=== PATIENT | female | born 1995 | race Caucasian/White ===

== ENCOUNTER 2018-12-05 06:00 | Inpatient (IN) | payer MEDICAID ==
[~2018-12-05] VITALS: Ht 160 cm; Wt 63.3 kg
[2018-12-05 06:30] VITALS: Ht 160 cm; Wt 63.3 kg
[2018-12-05 06:34] VITALS: BP 121/77; PULSE 86; RESP 17
[2018-12-05] MEDS ORDERED: FER325 PO (06:36)
[2018-12-05] MEDS ORDERED: PREN1TAB13 PO (06:36)
[2018-12-05] MEDS ORDERED: OXYCODONE/ASPIRIN (4.88/325) TAB PO PRN (07:00)
[2018-12-05] MEDS ORDERED: LIDOCAINE 1% (MPF) 30 ML INJ INJ PRN (07:00)
[2018-12-05] MEDS ORDERED: OXYTOCIN 30 UNITS/LR 500 ML IV PRN ×2 (07:00→20:30)
[2018-12-05] MEDS ORDERED: CARBOPROST 250 MCG INJ IM PRN ×2 (07:00→20:30)
[2018-12-05] MEDS ORDERED: BUTORPHANOL 2 MG INJ IV PRN (07:00)
[2018-12-05] MEDS ORDERED: METHYLERGONOVINE 0.2 MG INJ IM PRN ×2 (07:00→20:30)
[2018-12-05] MEDS ORDERED: OXYTOCIN 30 UNITS/LR 500 ML IV SCH ×3 (07:00→08:30)
[2018-12-05] MEDS ORDERED: MISOPROSTOL 200 MCG TAB PR PRN ×2 (07:00→20:30)
[2018-12-05] MEDS ORDERED: AMPICILLIN 2 GM/NS (PMX) 100 ML IVPB ONE (08:30)
[2018-12-05] MEDS ORDERED: AMPICILLIN 2 GM/NS (PMX) 100 ML ONE (08:51)
[2018-12-05] MEDS: LACTATED RINGER'S 1,000 ML IV SCH ×2 (09:04→18:39)
--- NOTE | 2018-12-05 10:40 | PREOPHP ---
DATE OF ADMISSION: 12/05/2018 HISTORY OF PRESENT ILLNESS: This is a 23-year-old lady, 1, EDC 12/06/2018, at 39 and 6/7 wee ks, admitted in early labor and for Pitocin augmentation. She had care in my [place] office and the care was uneventful. PAST PERSONAL HISTORY: No history of diabetes, TB, asthma. ALLERGIES: NO ALLERGIES. SOCIAL HISTORY: The patient does not smoke. She does not drink. MEDICATIONS: She does not take any drugs except her iron and vitamins. GYNECOLOGIC HISTORY: She had menarche at the age of 11, every 28 days interval, 3 to 4 days duration , and moderate in amount. REVIEW OF SYSTEMS: CARDIOVASCULAR: No chest pains. RESPIRATORY: No cough. GASTROINTESTINAL: No diarrhea, no vomiting. GENITOURINARY: No dysuria. PHYSICAL EXAMINATION: GENERAL: Reveals a conscious, coherent lady and in no acute distress. VITAL SIGNS: Her blood pressure 120/80, pulse rate 80 per minute, respirations 16 per minute. BREASTS, HEART AND LUNGS: Within normal limits. ABDOMEN: Soft. No organomegaly. Fundic height 36 cm. heart tones 140 per minute. PELVIC: Exam done by me revealed the cervix to be 2 cm dilated, 80% effaced station, -1 in cephalic presentation with the bag of water intact. EXTREMITIES: No pedal edema. ADMITTING DIAGNOSIS: A 39 and 6/7 weeks intrauterine in early labor. The patient had an O B ultrasound done and the estimated weight is 6 pounds 5 ounces. PLAN: The plans of delivery were explained to the patient as to go for vaginal delivery. The risks, benefits, and alternatives to vaginal delivery and were explained. The risks of was explained. The patient wanted to go for vaginal delivery. She was ordered to have Pitocin augm entation. Dictated By: MATY DE LA PAZ MD NS/NTS Conf#: [id number] DID#: [id number] CC: MATY DE LA PAZ MD;*EndCC*
[2018-12-05] MEDS: AMPICILLIN 1 GM/NS (PMX) 50 ML IVPB SCH ×2 (13:34→17:26)
[2018-12-05] MEDS: OXYTOCIN 30 UNITS/LR 500 ML IV SCH (20:19)
[2018-12-05] MEDS ORDERED: LACTATED RINGER'S 1,000 ML IV* SCH (20:19)
[2018-12-05 20:30] VITALS: BP 115/62; PULSE 88; RESP 18
[2018-12-05] MEDS ORDERED: HYDROCODONE/APAP (5/325) TAB PO PRN ×2 (20:30)
[2018-12-05] MEDS ORDERED: MAGNESIUM HYDROXIDE 30ML CUP PO PRN (20:30)
[2018-12-05] MEDS ORDERED: BENZOCAINE 20% 56 ML SPRAY TOP PRN (20:30)
[2018-12-05] MEDS ORDERED: DIPHENHYDRAMINE 25 MG CAP PO PRN (20:30)
[2018-12-05] MEDS ORDERED: WITCH HAZEL/GLYCERIN PAD PR PRN (20:30)
[2018-12-05] MEDS ORDERED: NA PHOSPHATE/BIPHOS 133 ML ENEMA PR PRN (20:30)
[2018-12-05] MEDS ORDERED: METHYLERGONOVINE 0.2 MG TAB PO PRN (20:30)
[2018-12-05] MEDS ORDERED: ONDANSETRON 4 MG INJ IV PRN (20:30)
[2018-12-05] MEDS ORDERED: IBUPROFEN 600 MG TAB PO PRN (20:30)
[2018-12-05] MEDS ORDERED: ZOLPIDEM 5 MG TAB PO PRN (20:30)
[2018-12-05] MEDS ORDERED: LANOLIN HPA 1 PKT TOP PRN (20:30)
[2018-12-05 21:00] VITALS: BP 122/66; PULSE 89; RESP 18
--- NOTE | 2018-12-05 21:30 | LDN ---
Date/Time of Note Date/Time of Note DATE: 12/05/18 TIME: 21:25 Delivery Summary 23 years old 1 with single intrauterine at 39 weeks and 3 days delivered a viable female over median episiotomy. Nose and mouth suctioned. There was nuchal cord x1 which reduced. The rest of body delivered. Cord clamped and cut after stopping pulsation. Baby given to the nurse. Placenta delivered spontaneously and intact with three-vessel cord. Median episiotomy repaired with 3-0 Vicryl. Patient tolerated procedure well Time of delivery 19:14 Weight 5 pounds 12 ounces 9 at 1 minutes and 9 at 5 minutes EBL 200 mL Weeks of Gestation 39 weeks and 3 days Placenta Delivered: Spontaneously Meconium: none Episiotomy: Yes (Median episiotomy) Indication for episiotomy Facilitate delivery Anesthesia type: Local Estimated blood loss: 200 Sponge & Needle done & correct: Yes All needle counts correct: Yes Any foreign bodies felt in the: No Delivery Information Sex Sex: female Apgars 1 Minute: 9 5 Minute: 9 10 Minute: 10 Suctioning Nose & mouth suctioned at pauline: Yes Umbilical Cord Umbilical cord with: 3 Vessels Cord presentations: nuchal cord Nuchal cord present X: 1 Cord Blood was obtained: Yes Mother & Baby Disposition Disposition Mom & Baby to Maternity; Good: Yes MILO SANCHEZ Dec 05, 2018 21:30
[2018-12-05] MEDS: SENNA/DOCUSATE NA (8.6MG/50MG) TAB PO SCH (21:51)
[2018-12-06] VITALS: BP 115/66; PULSE 88; RESP 16
[2018-12-06] MEDS ORDERED: AMPICILLIN 2 GM/NS (PMX) 100 ML IV SCH
[2018-12-06] MEDS: OXYTOCIN 30 UNITS/LR 500 ML IV SCH (00:01)
[2018-12-06 01:30] VITALS: BP 106/59; PULSE 96; RESP 18
[2018-12-06 04:30] VITALS: BP 106/59; PULSE 96; RESP 18
[2018-12-06 08:15] VITALS: BP 107/61; PULSE 93; RESP 18
[2018-12-06] MEDS: SENNA/DOCUSATE NA (8.6MG/50MG) TAB PO SCH ×2 (09:29→21:27)
[2018-12-06] MEDS: IBUPROFEN 600 MG TAB PO PRN (14:21)
[2018-12-06 15:45] VITALS: BP 103/52; PULSE 80; RESP 18
[2018-12-06 20:05] VITALS: BP 106/66; PULSE 98; RESP 19
[2018-12-07 03:20] VITALS: BP 103/52; PULSE 85; RESP 20
[2018-12-07 08:15] VITALS: BP 109/60; PULSE 70; RESP 19
[2018-12-07] MEDS ORDERED: VARICELLA VACCINE LIVE/PF 1,350 UNIT/0.5 ML ML SC* ONE (09:00)
[2018-12-07] MEDS ORDERED: MEASLES,MUMPS,RUBELLA VACCINE INJ SC* ONE (09:00)
[2018-12-07] MEDS ORDERED: DIPHTH/TET/ACEL PERTUSS (ADULT) 0.5 ML VIAL IM* ONE (09:00)
[2018-12-07] MEDS: SENNA/DOCUSATE NA (8.6MG/50MG) TAB PO SCH (09:00)
[2018-12-07] MEDS: IBUPROFEN 600 MG TAB PO PRN (13:05)
[2018-12-07 15:55] VITALS: BP 118/74; PULSE 83; RESP 18
--- NOTE | 2018-12-07 16:21 | PN ---
Date/Time of Note Date/Time of Note DATE: 12/07/18 TIME: 16:19 Assessment/Plan VTE Prophylaxis Risk score (from Ns)>0 risk: 1 SCD applied (from Ns): No SCD contraindicated: low risk/ambulating Pharmacological prophylaxis: NA/contraindicated Pharm contraindication: low risk/ambulating Lines/Catheters [facility] Peripheral IV Assessment/Plan Assessment/Plan POST DAY HOME TODAY RETURN TO CLINIC IN 2 WEEKS CONTINUE WITH VITAMINS OD AND FERROUS SULFATE PO TID DIET ADVISED COUNSELED INSTRUCTED CALL OFFICE IF THERE IS ANY PROBLEMS OR CONCERN Result Diagram: 12/07/18 0821 Results 24hrs Laboratory Tests Test 12/07/18 08:21 White Blood Count 10.8 # Red Blood Count 3.47 L Hemoglobin 10.4 L Hematocrit 32.1 L Mean Corpuscular Volume 92.5 Mean Corpuscular Hemoglobin 30.0 Mean Corpuscular Hemoglobin Concent 32.4 Red Cell Distribution Width 14.1 Platelet Count 158 Mean Platelet Volume 10.7 H Immature Granulocytes % 0.700 H Neutrophils % 71.3 Lymphocytes % 20.5 Monocytes % 6.6 Eosinophils % 0.6 Basophils % 0.3 Nucleated Red Blood Cells % 0.0 Immature Granulocytes # 0.070 H Neutrophils # 7.7 H Lymphocytes # 2.2 Monocytes # 0.7 Eosinophils # 0.1 Basophils # 0.0 Nucleated Red Blood Cells # 0.0 Subjective 24 Hr Interval Summary Free Text/Dictation FEELS GOOD, GOOD URINE OUTPUT, GOOD BOWEL MOVEMENT Exam/Review of Systems Exam Vitals Vital Signs Date Temp Pulse Resp B/P (MAP) Pulse Ox O2 O2 Flow FiO2 Time Delivery Rate 12/07/18 98.2 70 19 109/60 Room Air 08:15 (76) Exam VITAL SIGNS STABLE: YES AFEBRILE: YES BREAST NOT ENGORGED, NON-TENDER, NO APPRECIABLE MASS: YES LUNGS CLEAR, NO RALES, WHEEZES, RHONCHI: YES SINUS RHYTHM WITHOUT MURMUR: YES ABDOMEN: NON-TENDER FUNDUS: BELOW UMBILICUS BOWEL SOUNDS: PRESENT UTERUS: FIRM INTACT PERINEUM: YES LOCHIA: LIGHT DEEP TENDON REFLEXES: 0 EXTREMITIES: NO CALF TENDERNESS EDEMA SCALE: NONE Results Results 24hrs Laboratory Tests Test 12/07/18 08:21 White Blood Count 10.8 # Red Blood Count 3.47 L Hemoglobin 10.4 L Hematocrit 32.1 L Mean Corpuscular Volume 92.5 Mean Corpuscular Hemoglobin 30.0 Mean Corpuscular Hemoglobin Concent 32.4 Red Cell Distribution Width 14.1 Platelet Count 158 Mean Platelet Volume 10.7 H Immature Granulocytes % 0.700 H Neutrophils % 71.3 Lymphocytes % 20.5 Monocytes % 6.6 Eosinophils % 0.6 Basophils % 0.3 Nucleated Red Blood Cells % 0.0 Immature Granulocytes # 0.070 H Neutrophils # 7.7 H Lymphocytes # 2.2 Monocytes # 0.7 Eosinophils # 0.1 Basophils # 0.0 Nucleated Red Blood Cells # 0.0 Medications Medication Current Medications Lidocaine (Xylocaine 1% (Mpf)) 30 ml ONCE PRN INJ .EPISIOTOMY; Start 12/05/18 at 07:00 Oxytocin/Lactated Ringer's 500 ml @ 500 mls/hr ONCE POST IV ; Start 12/05/18 at 07:00 Oxytocin/Lactated Ringer's 500 ml @ 125 mls/hr POST IV Last administered on 12/05/18at 19:49; Admin Dose 125 MLS/HR; Start 12/05/18 at 07:00 Ibuprofen (Motrin) 600 mg ONCE PRN PO .PAIN 1-5 Last administered on 12/07/18at 13:05; Admin Dose 600 MG; Start 12/05/18 at 07:00 Oxycodone/Aspirin (Percodan) 2 tab ONCE PRN PO .PAIN 6-10; Start 12/05/18 at 07:00 Methylergonovine Maleate (Methergine) 0.2 mg Q6H PRN PO .VAGINAL BLEED; Start 12/05/18 at 20:30 Ibuprofen (Motrin) 600 mg Q6 PRN PO MILD PAIN LEVEL 1-3; Start 12/05/18 at 20:30 Acetaminophen/ Hydrocodone Bitart ([place] (5/325)) 1 tab Q4H PRN PO MODERATE PAIN LEVEL 4-6; Start 12/05/18 at 20:30 Acetaminophen/ Hydrocodone Bitart ([place]ixson (5/325)) 2 tab Q4H PRN PO SEVERE PAIN LEVEL 7-10; Start 12/05/18 at 20:30 Ondansetron HCl (Zofran Inj) 4 mg Q6H PRN IV NAUSEA/VOMITING; Start 12/05/18 at 20:30 Diphenhydramine HCl (Benadryl) 25 mg Q6H PRN PO .PRUTITUS; Start 12/05/18 at 20:30 Zolpidem Tartrate (Ambien) 5 mg QHS PRN PO .INSOMNIA; Start 12/05/18 at 20:30 Senna/Docusate Sodium (Senokot-S) 1 tab BID PO Last administered on 12/06/18 21:27; Admin Dose 1 TAB; Start 12/05/18 at 21:00 Magnesium Hydroxide (Milk Of Mag) 30 ml Q12H PRN PO .CONSTIPATION; Start 12/05 at 20:30 Sodium Biphosphate/ Sodium Phosphate (Fleet Enema) 133 ml DAILY PRN NC .CONSTIPATION; Start 12/05/18 at 20:30 Witch Ban/ Glycerin (Tucks Pads) 1 pad BEDSIDE MEDICATION PRN NC .HEMORRH OID/EPISIOTOMY PAIN Last administered on 12/05/18at 21:52; Admin Dose 1 PAD; Start 12/05/18 at 20:30 Benzocaine (Dermoplast [place]) 1 spray BEDSIDE MEDICATION PRN TOP .HEMMORHOID/EPISIOTOMY PAIN Last administered on 12/05/18 21:52; Admin Dose 1 SPRAY; Start 12/05/18 at 20:30 Lanolin (Lanolin Hpa) 1 applic BEDSIDE MEDICATION PRN TOP .NIPPLES Last administered on 12/05/18at 21:52; Admin Dose 1 APPLIC; Start 12/05/18 at 20:30 Oxytocin/Lactated Ringer's 500 ml @ 0 mls/hr ONCE PRN IV .VAGINAL BLEEDING; Start 12/05/18 at 20:30 Methylergonovine Maleate (Methergine) 0.2 mg ONCE PRN IM .VAGINAL BLEEDING; Start 12/05/18 at 20:30 Carboprost Tromethamine (Hemabate) 250 mcg ONCE PRN IM .VAGINAL BLEEDING; Start 12/05/18 at 20:30 Misoprostol (Cytotec) 1,000 mcg ONCE PRN NC .VAGINAL BLEEDING; Start 12/05/18 at 20:30 MATY DE LA PAZ MD Dec 07, 2018 16:21
--- NOTE | 2018-12-08 02:50 | DS ---
DATE OF ADMISSION: 12/05/2018 DATE OF DISCHARGE: 12/07/2018 This is a 23-year-old lady, 1, EDC of 12/06/2018 at 39 and 6/7 weeks, admitted in labor and f or Pitocin augmentation. HISTORY OF PRESENT ILLNESS: See dictated history and physical. PHYSICAL EXAMINATION: See dictated history and physical. ADMITTING DIAGNOSIS: A 39 and 6/7 weeks intrauterine in labor. PROGRESS OF LABOR: See dictated history and physical. HOSPITAL COURSE: The patient progressed well in a normal spontaneous vaginal delivery and did have a normal vaginal delivery and delivered by Dr. Young. She tolerated the delivery well. She did masterson ve good course. She was on general diet. She had good bowel movement . She masterson d less perineal pain. She was discharged home on the second day on general diet and activ ity was restricted. She was counseled. She was instructed. She was told to come back to the clinic in 2 weeks. She was told to continue to take her iron and vitamins at home and the hematocrit on hillary camara was 33.2 and hemoglobin of 11. FINAL DIAGNOSES: A 39 and 6/7 weeks intrauterine in labor and delivered. Dictated By: MATY PETERSON/PRICILA Conf#: [id number] DID#: [id number]
--- NOTE | 2018-12-08 19:00 | DELSUM ---
Delivery Summary A-C Datetime Report Generated by CPN: 12/08/2018 19:00 DELIVERY PERSONNEL Director Of Hotel: Valentina De La Torre MATERNAL INFORMATION Delivery Anesthesia: None Medications in Delivery: OXYTOCIN 30UNITS IN 500ML LR; LIDOCAINE 1% Delivery QBL (ml): 211 Placenta Cultured: No LABOR SUMMARY EDC: 12/06/2018 00:00 No. Babies in Womb: 1 Attempted: No LABOR INFORMATION Reason for Induction- Other: elective Onset of Labor: 12/05/2018 09:30 Complete Dilatation: 12/05/2018 18:52 Oxytocin: Induction Group B Beta Strep: Positive Antibiotics # of Doses: 2 Antibiotics Time of Last Dose: 12/05/2018 13:30 Steroids Given: None Reason Steroids Not Administered: Not Applicable MEMBRANES Membranes Rupture Method: Spontaneous Rupture of Membranes: 12/05/2018 11:31 Length of Rupture (hr): 7.72 Amniotic Fluid Color: Clear Amniotic Fluid Amount: Small Amniotic Fluid Odor: None STAGES OF LABOR Stage 1 hr: 9 Stage 1 min: 22 Stage 2 hr: 0 Stage 2 min: 22 Stage 3 hr: 0 Stage 3 min: 4 Total Time in Labor hr: 9 Total Time in Labor min: 48 VAGINAL DELIVERY Episiotomy: Median Laceration Extension: N/A Laceration Type: None Laceration Repair: Yes Initial Vag Sponge Count: 10 Final Vag Sponge Count: 10 Initial Vag Sharps Count: 1 Final Vag Sharps Count: 2 Sponge Count Correct: Yes; Vaginal Sweep Performed Sharps Count Correct: Yes Count Comment: ADDED 1 SHARP BABY A INFORMATION Delivery Date/Time: 12/05/2018 19:14 Method of Delivery: Vaginal Born in Route : No : N/A Forceps: N/A Vacuum Extraction: N/A Shoulder Dystocia : N/A SHOULDER DYSTOCIA BABY A Infant Delivery Date/Time: 12/05/2018 19:14 PRESENTATION/POSITION BABY A Presentation: Cephalic Cephalic Presentation: Vertex Vertex Position: Left Occipital Anterior Breech Presentation: N/A PLACENTA INFORMATION BABY A Placenta Delivery Time : 12/05/2018 19:18 Placenta Method of Delivery: Spontaneous Placenta Status: Delivered SCORES BABY A Heart Rate 1 min: >100 bpm Resp Effort 1 min: Good Cry Reflex Irritability 1 min: Cough/Sneeze/Pulls Away Muscle Tone 1 min: Active Motion Color 1 min: Body Ramireno, Extremit Blue Resuscitation Effort 1 min: Tactile Stimulation SCORE 1 MIN: 9 Heart Rate 5 min: >100 bpm Resp Effort 5 min: Good Cry Reflex Irritability 5 min: Cough/Sneeze/Pulls Away Muscle Tone 5 min: Active Motion Color 5 min: Body Rami[place]o, Extremit Blue Resuscitation Effort 5 min: Tactile Stimulation SCORE 5 MIN: 9 INFORMATION BABY A Gestational Age at Delivery: 39.6 Gestational Status: Full Term- 39- 40.6 Weeks Infant Outcome : Liveborn Infant Condition : Stable Infant Sex: Female IDENTIFICATION/MEDS BABY A ID Band Number: [id number] ID Band Location: Right Leg; Left Arm Sensor Applied: Yes Sensor Number: [id number] Sensor Location : Cord Clamp Vitamin K Given : Not Given Erythromycin Given: Not Given WEIGHT/LENGTH BABY A Birthweight (gm): 2605 Weight (lb): 5 Infant Weight (oz): 12 Infant Length (in): 20.00 Infant Length (cm): 50.80 CORD INFORMATION BABY A No. Cord Vessels: 3 Nuchal Cord : Around Neck x1, Loose Cord Blood Taken: Yes Banking/Donate Info: NONE Infant Suction: Mouth; Nose
== END 2018-12-07 18:55 | disposition home or self-care (01) | DRG 807 ==
LOC: L-D 06:10 → PP1 20:49
PROVIDERS: ADMIT Obstetrics & Gynecology; ATTEND Obstetrics & Gynecology
PROC: 3E033VJ Introduction of Other Hormone into Peripheral Vein, Percutaneous Approach (ICD-10-PCS; 2018-12-05)
PROC: 10E0XZZ Delivery of Products of Conception, External Approach (ICD-10-PCS; principal; 2018-12-05 06:00)
DX: O69.81X0 Labor and delivery complicated by cord around neck, without compression, not applicable or unspecified (principal); Z37.0 Single live birth; Z3A.39 39 weeks gestation of pregnancy
CPT/HCPCS: 76815; 85025; 85610; 85730; 86592; 86850; 86900; 86901; 87340; 90686; 90715; 90716; 99464; J0290; J2590; J7120